=== PATIENT | female | born 1955 | race Caucasian/White ===

== ENCOUNTER → 2016-10-28 | Outpatient (REF) | payer MEDICAID, OTHER ==
[2016-10-28 13:01] LABS: BASO # 0.1 K/mm3 (0.0-0.2); BASO % 1.3 % (0.0-1.0); EOS # 0.2 K/mm3 (0.0-0.50); EOS % 3.1 % (0.0-3.0); LARGE UNSTAINED CELL # 0.1 K/mm3 (0.0-0.4); LARGE UNSTAINED CELL % 1.5 % (0.0-4.0); LYMPH # 1.9 K/mm3 (1.5-4.5); LYMPH % 28.3 % (24.0-44.0); MEAN CORPUSCULAR HGB CONC 33.5 g/dl (32.0-36.5); MEAN CORPUSCULAR VOLUME 89.7 fl (80.0-96.0); MONO # 0.4 K/mm3 (0.0-0.8); MONO % 5.9 % (0.0-5.0); NEUTROPHILS # 3.7 K/mm3 (1.8-7.7); NEUTROPHILS % 59.9 % (36.0-66.0); PLATELET COUNT, AUTOMATED 283 k/mm3 (150-450); RED CELL DISTRIBUTION WIDTH 12.6 % (11.5-14.5); WHITE BLOOD COUNT 6.2 K/mm3 (4.0-10.0)
[2016-10-28 13:15] LABS: ALBUMIN 3.3 GM/DL (3.2-5.2); ALBUMIN/GLOBULIN RATIO 1.03 (1.00-1.93); ALKALINE PHOSPHATASE 78 U/L (45-117); ALT/SGPT 21 U/L (12-78); ANION GAP 9 MEQ/L (8-16); AST/SGOT 14 U/L (15-37); BILIRUBIN,TOTAL 0.4 MG/DL (0.2-1.0); BLOOD UREA NITROGEN 12 MG/DL (7-18); CALCIUM LEVEL 8.9 MG/DL (8.8-10.2); CARBON DIOXIDE LEVEL 28 MEQ/L (21-32); CHLORIDE LEVEL 105 MEQ/L (98-107); CREATININE FOR GFR 0.67 MG/DL (0.55-1.02); GLOMERULAR FILTRATION RATE > 60.0 (>45); GLUCOSE, FASTING 108 MG/DL (80-110); POTASSIUM SERUM 4.3 MEQ/L (3.5-5.1); SODIUM LEVEL 142 MEQ/L (136-145); TOTAL PROTEIN 6.5 GM/DL (6.4-8.2)
[2016-10-28 13:28] LABS: ERYTHROCYTE SEDIMENTATION RATE 15 mm/hr (0-30)
[2016-10-31 00:09] LABS: Lyme Disease IgG/IgM Antibodie <0.91 ISR (0.00-0.90); Lyme Disease IgM Ab Quantitati <0.80 index (0.00-0.79)
[2016-10-31 09:54] LABS: ALBUMIN 3.67 GM/DL (3.29-5.55); ALBUMIN % 56.5 % (55.8-66.1); GAMMA GLOBULIN % 12.7 % (11.1-18.8)
== END ==
LOC: M LABDRAW1 11:37
PROVIDERS: ATTEND Internal Medicine Rheumatology
DX: M35.9 Systemic involvement of connective tissue, unspecified (principal); Z79.899 Other long term (current) drug therapy; D47.2 Monoclonal gammopathy; R53.83 Other fatigue

== ENCOUNTER → 2018-03-14 | Outpatient (REF) | payer OTHER ==
[2018-03-14 22:11] LABS: CHLAMYDIA DNA AMPLIFICATION NEGATIVE (NEGATIVE); GC DNA AMPLIFICATION NEGATIVE (NEGATIVE)
== END ==
LOC: M SFHCLERA 18:49
PROVIDERS: ATTEND Nurse Practitioner Family
DX: R30.0 Dysuria (principal)

== ENCOUNTER → 2018-06-07 | Outpatient (REF) | payer OTHER ==
[2018-06-07 19:07] LABS: APPEARANCE, URINE CLEAR (CLEAR); BACTERIA, URINE AUTO 1+ (NEGATIVE); BILIRUBIN, URINE AUTO NEGATIVE (NEGATIVE); BLOOD, URINE BLOOD NEGATIVE (NEGATIVE); CALCIUM OXALATE CRYSTALS SMALL; COLOR, URINE YELLOW (YELLOW); GLUCOSE, URINE (UA) AUTO NEGATIVE (NEGATIVE); KETONE, URINE AUTO NEGATIVE (NEGATIVE); LEUKOCYTE ESTERASE, URINE AUTO NEGATIVE (NEGATIVE); NITRITE, URINE AUTO NEGATIVE (NEGATIVE); PROTEIN, URINE AUTO NEGATIVE (NEGATIVE); RBC, URINE AUTO 0 /HPF (0-3); SPECIFIC GRAVITY URINE AUTO 1.016 (1.002-1.035); SQUAMOUS EPITHELIAL CELL UR AU 1 /HPF (0-6); UROBILINOGEN, URINE AUTO 0.2 mg/dL (0.0-2.0); WBC, URINE AUTO 1 /HPF (0-3)
== END ==
LOC: M SMT 17:32
PROVIDERS: ATTEND Nurse Practitioner Family
DX: R30.0 Dysuria (principal)

== ENCOUNTER → 2018-06-13 | Outpatient (REF) | payer OTHER ==
[2018-06-13 18:04] LABS: APPEARANCE, URINE CLEAR (CLEAR); BACTERIA, URINE AUTO 1+ (NEGATIVE); BILIRUBIN, URINE AUTO NEGATIVE (NEGATIVE); BLOOD, URINE BLOOD NEGATIVE (NEGATIVE); COLOR, URINE YELLOW (YELLOW); GLUCOSE, URINE (UA) AUTO NEGATIVE (NEGATIVE); KETONE, URINE AUTO NEGATIVE (NEGATIVE); LEUKOCYTE ESTERASE, URINE AUTO 1+ (NEGATIVE); NITRITE, URINE AUTO NEGATIVE (NEGATIVE); PROTEIN, URINE AUTO NEGATIVE (NEGATIVE); RBC, URINE AUTO 1 /HPF (0-3); SPECIFIC GRAVITY URINE AUTO 1.004 (1.002-1.035); SQUAMOUS EPITHELIAL CELL UR AU 0 /HPF (0-6); UROBILINOGEN, URINE AUTO 0.2 mg/dL (0.0-2.0); WBC, URINE AUTO 17 /HPF (0-3)
== END ==
LOC: M SMT 16:59
PROVIDERS: ATTEND Nurse Practitioner Family
DX: R30.0 Dysuria (principal)

== ENCOUNTER → 2019-07-22 | Outpatient (REF) | payer OTHER, MEDICARE ==
[2019-07-22 18:11] LABS: APPEARANCE, URINE CLOUDY (CLEAR); BACTERIA, URINE AUTO NEGATIVE (NEGATIVE); BILIRUBIN, URINE AUTO NEGATIVE (NEGATIVE); BLOOD, URINE BLOOD NEGATIVE (NEGATIVE); COLOR, URINE YELLOW (YELLOW); GLUCOSE, URINE (UA) AUTO NEGATIVE (NEGATIVE); KETONE, URINE AUTO NEGATIVE (NEGATIVE); LEUKOCYTE ESTERASE, URINE AUTO 3+ (NEGATIVE); MUCUS, URINE SMALL (NEGATIVE); NITRITE, URINE AUTO NEGATIVE (NEGATIVE); PROTEIN, URINE AUTO NEGATIVE (NEGATIVE); RBC, URINE AUTO 3 /HPF (0-3); SPECIFIC GRAVITY URINE AUTO 1.008 (1.002-1.035); SQUAMOUS EPITHELIAL CELL UR AU 1 /HPF (0-6); UROBILINOGEN, URINE AUTO 0.2 mg/dL (0.0-2.0); WBC, URINE AUTO 81 /HPF (0-3)
== END ==
LOC: M SMT 17:23
PROVIDERS: ATTEND Nurse Practitioner Family
DX: R30.0 Dysuria (principal)

== ENCOUNTER 2019-08-17 17:48 | Emergency (ER) | payer MEDICARE, OTHER ==
[~2019-08-17] VITALS: Ht 152.4 cm; Wt 98.2 kg
[2019-08-17] MEDS ORDERED: SERT-138 PO (18:01)
[2019-08-17] MEDS ORDERED: LAMO100T3 PO (18:01)
[2019-08-17] MEDS ORDERED: MEDR4TAB PO (18:01)
[2019-08-17] MEDS ORDERED: MYRB50TA PO (18:01)
[2019-08-17] MEDS ORDERED: BUSP15TA47 PO (18:01)
[2019-08-17] MEDS ORDERED: AMBI10TA PO (18:01)
[2019-08-17] MEDS ORDERED: BACL10TA2 PO (18:01)
[2019-08-17] MEDS ORDERED: METF10004 PO (18:01)
[2019-08-17] MEDS ORDERED: VITA-158 PO (18:01)
[2019-08-17] MEDS ORDERED: PREG100CA PO (18:01)
[2019-08-17] MEDS ORDERED: PREM0.45 PO (18:01)
[2019-08-17] MEDS ORDERED: LISI2.5T2 PO (18:01)
[2019-08-17] MEDS ORDERED: MORPHINE 4 MG/ML 1ML VIAL/SYRINGE (J2270) IV ONE (18:45)
[2019-08-17 19:06] LABS: BASO # 0.1 10^3/uL (0.0-0.2); BASO % 0.7 % (0.0-1.0); EOS # 0.2 10^3/uL (0.0-0.5); EOS % 1.5 % (0.0-3.0); HEMOGLOBIN 13.2 g/dl (12.0-15.5); LYMPH # 3.3 10^3/uL (1.5-5.0); LYMPH % 22.6 % (24.0-44.0); MEAN CORPUSCULAR HEMOGLOBIN 28.4 pg (27.0-33.0); MEAN CORPUSCULAR HGB CONC 32.2 g/dl (32.0-36.5); MEAN CORPUSCULAR VOLUME 88.2 fl (80.0-96.0); MONO # 1.4 10^3/uL (0.0-0.8); MONO % 9.8 % (0.0-5.0); NEUTROPHILS # 9.5 10^3/uL (1.5-8.5); NEUTROPHILS % 64.9 % (36.0-66.0); PLATELET COUNT, AUTOMATED 332 10^3/uL (150-450); RED BLOOD COUNT 4.65 10^6/uL (4.00-5.40); WHITE BLOOD COUNT 14.6 10^3/uL (4.0-10.0)
[2019-08-17 19:24] LABS: ERYTHROCYTE SEDIMENTATION RATE 28 mm/hr (0-30)
[2019-08-17] MEDS ORDERED: NS 1,000 ML IV ONE (19:45)
[2019-08-17 19:49] LABS: BLOOD UREA NITROGEN 12 MG/DL (7-18); CALCIUM LEVEL 8.6 MG/DL (8.8-10.2); CARBON DIOXIDE LEVEL 31 MEQ/L (21-32); CHLORIDE LEVEL 101 MEQ/L (98-107); CREATININE FOR GFR 0.74 MG/DL (0.55-1.30); GLOMERULAR FILTRATION RATE > 60.0 (>45); GLUCOSE, FASTING 125 MG/DL (70-100); SODIUM LEVEL 140 MEQ/L (136-145)
[2019-08-17] MEDS ORDERED: ISOVUE-370 76% 100ML VIAL As Ordered ONE (19:51)
--- NOTE | 2019-08-17 20:24 | REPVR ---
PROCEDURE INFORMATION: Exam: CT Angiography Pelvis With Contrast Exam date and time: 08/17/2019 7:58 PM Age: 63 years old Clinical indication: Severe right groin pain TECHNIQUE: Imaging protocol: Computed tomographic angiography of the pelvis with intravenous contrast material. 3D rendering: MIP and/or 3D reconstructed images were created by the technologist. Radiation optimization: All CT scans at this facility use at least one of these dose optimization techniques: automated exposure control; mA and/or kV adjustment per patient size (includes targeted exams where dose is matched to clinical indication); or iterative reconstruction. Contrast material: ISOVUE 370; Contrast volume: 100 ml; Contrast route: IV; COMPARISON: No relevant prior studies available. FINDINGS: Aorta: The visualized portion of the distal abdominal aorta is normal in caliber and patent. Inferior mesenteric artery: The inferior mesenteric artery is patent. Right iliac arteries: The right common iliac artery, right external iliac artery, and right internal iliac artery are intact and patent. Right femoral/popliteal arteries: No occlusion or stenosis of the right common femoral artery, imaged proximal portion of the right superficial femoral artery, or imaged proximal portion of the right profunda femoris artery. The right popliteal artery was not imaged. Left iliac arteries: The left common iliac artery, left external iliac artery, and left internal iliac artery are intact and patent. Left femoral/popliteal arteries: No occlusion or stenosis of the left common femoral artery, imaged proximal portion of the left superficial femoral artery, or imaged proximal portion of the left profunda femoris artery. The left popliteal artery was not imaged. Stomach and bowel: There is an anastomotic suture line involving small bowel in the left side of the abdomen. The imaged loops of small and large bowel are otherwise unremarkable. No bowel obstruction is noted. There is a moderate amount of formed stool in the cecum and ascending colon. The bowel in the abdomen was not fully imaged. The stomach was not imaged. Appendix: Normal. There is no evidence for appendicitis. Intraperitoneal space: No free air or fluid collection in the pelvis. Lymph nodes: No enlarged lymph nodes. Reproductive: There has been a hysterectomy. The ovaries are unremarkable. Bladder: The distended urinary bladder is normal in appearance. No stones or masses are seen in the bladder. Bones/joints: The imaged bony structures are intact. There is no suspicious osteolytic or osteoblastic lesion. 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 There are degenerative changes involving the lower lumbar spine. There is a grade 1 anterolisthesis of L4 on L5 secondary to severe osteoarthritis of the L4-L5 facet joints. No pars defect is noted. There is mild osteoarthritis of both hip joints. Incidental note is made of a small bone island in the right femoral head. Soft tissues: There is a small fat containing midline ventral hernia located approximately 7 cm above the umbilicus. No inguinal hernia. No soft tissue fluid collection. IMPRESSION: 1. No acute findings in the pelvis. No inguinal hernia. 2. Small fat containing midline ventral hernia located approximately 7 cm above the umbilicus. 3. Patent iliac arteries and proximal femoral arteries. Electronically signed by: Bolivar Pat On 08/17/2019 20:23:53 PM
[2019-08-17] MEDS ORDERED: ULTR50TA8 PO (21:13)
[2019-08-17] MEDS ORDERED: traMADol 50 MG TAB (BULK 4 TAB ED) PO ONE (21:15)
[2019-08-17 21:25] VITALS: BP 142/78
== END 2019-08-17 21:31 | disposition home or self-care (01) ==
LOC: M ED 17:48
DX: M25.551 Pain in right hip (principal); R10.30 Lower abdominal pain, unspecified; K43.9 Ventral hernia without obstruction or gangrene; Z98.84 Bariatric surgery status; Z96.653 Presence of artificial knee joint, bilateral; Z86.69 Personal history of other diseases of the nervous system and sense organs; D86.9 Sarcoidosis, unspecified; E11.9 Type 2 diabetes mellitus without complications; M51.26 Other intervertebral disc displacement, lumbar region; F41.9 Anxiety disorder, unspecified; F32.9 Major depressive disorder, single episode, unspecified; Z79.890 Hormone replacement therapy; Z79.84 Long term (current) use of oral hypoglycemic drugs; Z79.899 Other long term (current) drug therapy; Z88.0 Allergy status to penicillin
CPT/HCPCS: 72191; 80048; 85025; 85652; 96361; 96374; 99284; J2270; Q9967

== ENCOUNTER → 2020-04-21 | Outpatient (REF) | payer MEDICARE, MEDICAID ==
[~2020-04-21] MED LIST: AMBI10TA PO; BACL10TA2 PO; BUSP15TA47 PO; LAMO100T3 PO; LISI2.5T2 PO; MEDR4TAB PO; METF10004 PO; MYRB50TA PO; PREG100CA PO; PREM0.45 PO; SERT-138 PO; ULTR50TA8 PO; VITA-158 PO
[2020-04-21 14:27] LABS: APPEARANCE, URINE HAZY (CLEAR); BACTERIA, URINE AUTO NEGATIVE (NEGATIVE); BILIRUBIN, URINE AUTO NEGATIVE (NEGATIVE); BLOOD, URINE BLOOD NEGATIVE (NEGATIVE); COLOR, URINE AMBER (YELLOW); GLUCOSE, URINE (UA) AUTO NEGATIVE (NEGATIVE); KETONE, URINE AUTO TRACE mg/dL (NEGATIVE); LEUKOCYTE ESTERASE, URINE AUTO NEGATIVE (NEGATIVE); MUCUS, URINE SMALL (NEGATIVE); NITRITE, URINE AUTO NEGATIVE (NEGATIVE); PROTEIN, URINE AUTO NEGATIVE (NEGATIVE); RBC, URINE AUTO 0 /HPF (0-3); SPECIFIC GRAVITY URINE AUTO 1.026 (1.002-1.035); SQUAMOUS EPITHELIAL CELL UR AU 0 /HPF (0-6); WBC, URINE AUTO 1 /HPF (0-3)
== END ==
LOC: M SMT 13:41
PROVIDERS: ATTEND Nurse Practitioner Women's Health
DX: N39.41 Urge incontinence (principal)
CPT/HCPCS: 51798; 81001; 87086; G0463

== ENCOUNTER → 2020-09-03 | Outpatient (CLI) | payer MEDICARE, MEDICAID ==
--- NOTE | 2020-09-03 11:14 | REP ---
INDICATION: LOW BACK PAIN. COMPARISON: 10/27/2016 TECHNIQUE: Five views FINDINGS: Vertebral body height and alignment is unchanged. There is posterior disc space narrowing at every level status quo. A minimal grade 1 L4 upon L5 spondylolisthesis may have developed since last exam. Degenerative facet joint changes seen bilaterally at every level particularly L4-5 and L5-S1. There is anterior lipping at every level which is increased slightly. Tiny marginal osteophytes are seen bilaterally at multiple levels. The pedicles are intact bilaterally. IMPRESSION: Chronic changes as described above. <Electronically signed by Leon Ng > 09/03/20 1111
== END ==
LOC: M WUC 09:21
PROVIDERS: ATTEND Physician Assistant
DX: M54.5 Low back pain (principal)

== ENCOUNTER → 2020-09-10 | Outpatient (CLI) | payer MEDICARE, MEDICAID ==
--- NOTE | 2020-09-10 21:27 | REPVR ---
PROCEDURE INFORMATION: Exam: MR Lumbar Spine Without Contrast Exam date and time: 09/10/2020 2:02 PM Age: 65 years old Clinical indication: Low back pain; Additional info: Lumbar radiculopathy TECHNIQUE: Imaging protocol: Multiplanar magnetic resonance images of the lumbar spine without intravenous contrast. COMPARISON: CR SPINE LS COMPLETE 09/03/2020 9:35 AM FINDINGS: Vertebral body heights are maintained. No abnormal marrow signal. No cord compression. No abnormal cord signal. 0.4 cm grade 1 anterolisthesis of L4 on L5. Conus medullaris terminates at the L1 level. Paravertebral soft tissues are unremarkable. L1-L2: No significant canal or foraminal narrowing. L2-L3: Right paracentral disc protrusion superimposed over broad-based disc bulge causes mild canal narrowing and slight effacement of the right lateral recess. Mild bilateral foraminal narrowing. L3-L4: Broad-based disc bulge and facet hypertrophy cause mild canal narrowing and mild bilateral foraminal narrowing. L4-L5: Left paracentral disc protrusion superimposed over broad-based disc bulge causes mild canal narrowing and effacement of the bilateral lateral recesses. Impingement upon the bilateral traversing L5 nerve roots. Along with facet hypertrophy there is mild to moderate right and moderate left foraminal narrowing. L5-S1: No significant canal or foraminal narrowing. IMPRESSION: Multilevel spondylotic changes of the lumbar spine, most pronounced at L4-L5, as detailed above. Electronically signed by: Anand Louis On 09/10/2020 21:26:50 PM
== END ==
LOC: M PLAIMG 12:29
PROVIDERS: ATTEND Nurse Practitioner Family
DX: M54.16 Radiculopathy, lumbar region (principal)

== ENCOUNTER → 2021-12-03 | Outpatient (CLI) | payer MEDICARE, MEDICAID ==
[~2021-12-03] MED LIST changes: -LISI2.5T2 PO; +LISI2.5T9 PO
== END ==
LOC: M PLAIMG 06:50
PROVIDERS: ATTEND Nurse Practitioner Family
DX: M54.14 Radiculopathy, thoracic region (principal)

== ENCOUNTER → 2022-02-17 | Outpatient (CLI) | payer MEDICARE, MEDICAID | LOC: M RAD 07:01 | PROVIDERS: ATTEND Pain Medicine Interventional Pain Medicine | DX: M51.14 Intervertebral disc disorders with radiculopathy, thoracic region (principal); M47.814 Spondylosis without myelopathy or radiculopathy, thoracic region ==

== ENCOUNTER → 2022-04-27 | Outpatient (REF) | payer MEDICARE, MEDICAID ==
[2022-04-27 17:43] LABS: APPEARANCE, URINE CLEAR (CLEAR); BILIRUBIN, URINE AUTO NEGATIVE (NEGATIVE); BLOOD, URINE BLOOD NEGATIVE (NEGATIVE); COLOR, URINE YELLOW (YELLOW); GLUCOSE, URINE (UA) AUTO NEGATIVE (NEGATIVE); KETONE, URINE AUTO NEGATIVE (NEGATIVE); LEUKOCYTE ESTERASE, URINE AUTO NEGATIVE (NEGATIVE); NITRITE, URINE AUTO NEGATIVE (NEGATIVE); PROTEIN, URINE AUTO NEGATIVE (NEGATIVE); SPECIFIC GRAVITY URINE AUTO 1.003 (1.002-1.035); UROBILINOGEN, URINE AUTO 0.2 mg/dL (0.0-2.0)
[2022-04-27 17:46] LABS: BACTERIA, URINE AUTO NEGATIVE (NEGATIVE); RBC, URINE AUTO 0 /HPF (0-3); SQUAMOUS EPITHELIAL CELL UR AU 0 /HPF (0-6); WBC, URINE AUTO 1 /HPF (0-3)
== END ==
LOC: M SMT 16:55
PROVIDERS: ATTEND Urology
DX: R32 Unspecified urinary incontinence (principal)

== ENCOUNTER → 2022-05-20 | Outpatient (CLI) | payer MEDICARE, MEDICAID ==
[2022-05-23 18:07] LABS: MUMPS VIRUS IgG ANTIBODY <9.0 AU/mL (Immune >10.9); RUBEOLA IgG ANTIBODY >300.0 AU/mL (Immune >16.4)
== END ==
LOC: M WUC 11:40
DX: Z02.1 Encounter for pre-employment examination (principal)

== ENCOUNTER → 2022-06-08 | Outpatient (CLI) | payer MEDICARE, MEDICAID ==
[~2022-06-08] MED LIST changes: +B-122500 PO; +CALCCAP4 PO; +CALCTAB53 PO; +D31000CA4 PO; +IRON27TA2 PO; +LORA-674 PO; +MODA100T13 PO; +ROSU5TAB5 PO; +SERT50TA29 PO; +VITA500045 PO; +VITA500T11 PO; +VITATAB73 PO; +VITMTA PO
== END ==
LOC: M LABSMTC 09:18
PROVIDERS: ATTEND Anesthesiology
DX: Z01.818 Encounter for other preprocedural examination (principal); Z11.52 Encounter for screening for COVID-19

== ENCOUNTER 2022-06-13 10:45 | Day surgery (SDC) | payer MEDICARE, MEDICAID ==
[~2022-06-13] VITALS: Ht 149.9 cm; Wt 94.7 kg
[~2022-06-13 10:45] MED LIST changes: +ceFAZolin SOD 2 GM in IV 1 EA IV ONE
[2022-06-13] MEDS ORDERED: LIDOCAINE 1% SDV 30ML VIAL As Ordered ONE ×2 (10:55→12:26)
[2022-06-13] MEDS ORDERED: BUPIVACAINE/EPIN 0.25% 30ML VIAL As Ordered ONE (10:55)
[2022-06-13] MEDS ORDERED: INSULIN LISPRO (NovoLOG) PER UNIT SC PRN (11:05)
[2022-06-13] MEDS ORDERED: ONDANSETRON 4MG 2ML VIAL As Ordered ONE (12:02)
[2022-06-13] MEDS ORDERED: propofoL 200 MG/20 ML VIAL As Ordered ONE (12:02)
[2022-06-13] MEDS ORDERED: fentaNYL 100 MCG/2 ML INJECTION As Ordered ONE (12:02)
[2022-06-13] MEDS ORDERED: ACETAMINOPHEN 1000MG 100ML IV BAG As Ordered ONE (12:02)
[2022-06-13] MEDS ORDERED: LIDOCAINE 2% 100MG/5ML SDV (FOR ANES.) As Ordered ONE (12:02)
[2022-06-13] MEDS ORDERED: METOCLOPRAMIDE INJ 10MG/2ML VIAL As Ordered ONE (12:02)
[2022-06-13] MEDS ORDERED: MIDAZOLAM INJ 2MG/2ML VIAL As Ordered ONE (12:02)
[2022-06-13] MEDS ORDERED: DESFLURANE 240 ML INHALANT As Ordered ONE (12:34)
[2022-06-13] MEDS ORDERED: CEPH500C PO (12:46)
[2022-06-13 13:10] VITALS: BP 116/58
== END 2022-06-13 13:20 | disposition home or self-care (01) ==
LOC: M SDC 10:45
PROVIDERS: ATTEND Urology
DX: N32.81 Overactive bladder (principal); E78.5 Hyperlipidemia, unspecified; M79.7 Fibromyalgia; F41.9 Anxiety disorder, unspecified; F32.A Depression, unspecified; Z86.73 Personal history of transient ischemic attack (TIA), and cerebral infarction without residual deficits; Z79.899 Other long term (current) drug therapy; Z87.891 Personal history of nicotine dependence
CPT/HCPCS: 64561; 76000; C1778; C1787; J0131; J1100; J2250; J2405; J2765; J3010

== ENCOUNTER 2022-06-27 06:31 | Day surgery (SDC) | payer MEDICARE, MEDICAID ==
[~2022-06-27] VITALS: Ht 149.9 cm; Wt 95.7 kg
[~2022-06-27 06:31] MED LIST changes: +CEPH500C PO
[2022-06-27] MEDS ORDERED: KETOROLAC 60MG 2ML VIAL As Ordered ONE ×2 (07:10→07:46)
[2022-06-27] MEDS ORDERED: propofoL 200 MG/20 ML VIAL As Ordered ONE ×2 (07:10→07:43)
[2022-06-27] MEDS ORDERED: LIDOCAINE 2% 100MG/5ML SDV (FOR ANES.) As Ordered ONE ×2 (07:10→07:43)
[2022-06-27] MEDS ORDERED: ONDANSETRON 4MG 2ML VIAL As Ordered ONE ×2 (07:10→07:43)
[2022-06-27] MEDS ORDERED: MIDAZOLAM INJ 2MG/2ML VIAL As Ordered ONE (07:51)
[2022-06-27] MEDS ORDERED: fentaNYL 100 MCG/2 ML INJECTION As Ordered ONE (07:51)
[2022-06-27] MEDS ORDERED: LR 1,000 ML IV SCH (08:05)
[2022-06-27] MEDS ORDERED: ceFAZolin 1GM VIAL As Ordered ONE (08:40)
[2022-06-27] MEDS ORDERED: LIDOCAINE 1% SDV 30ML VIAL As Ordered ONE (08:40)
[2022-06-27] MEDS ORDERED: ACETAMINOPHEN 1000MG 100ML IV BAG As Ordered ONE (08:58)
[2022-06-27] MEDS ORDERED: HYDR-3713 PO (09:39)
[2022-06-27] MEDS ORDERED: CEPH500C PO (09:39)
[2022-06-27 09:42] VITALS: BP 126/70
== END 2022-06-27 10:12 | disposition home or self-care (01) ==
LOC: M SDC 06:31
PROVIDERS: ATTEND Urology
DX: N32.81 Overactive bladder (principal); R32 Unspecified urinary incontinence; E78.00 Pure hypercholesterolemia, unspecified; E11.9 Type 2 diabetes mellitus without complications; I10 Essential (primary) hypertension; M51.26 Other intervertebral disc displacement, lumbar region; D86.9 Sarcoidosis, unspecified; M19.90 Unspecified osteoarthritis, unspecified site; M79.7 Fibromyalgia; F41.9 Anxiety disorder, unspecified; F32.A Depression, unspecified; Z87.891 Personal history of nicotine dependence; Z86.73 Personal history of transient ischemic attack (TIA), and cerebral infarction without residual deficits; Z79.899 Other long term (current) drug therapy; Z79.84 Long term (current) use of oral hypoglycemic drugs
CPT/HCPCS: 64581; 64590; 76000; C1787; J0131; J0690; J1100; J1885; J2250; J2405; J3010; L8689

== ENCOUNTER → 2023-01-17 | Outpatient (CLI) | payer MEDICAID, MEDICARE ==
[~2023-01-17] MED LIST changes: +ACET-897 PO; +BUPR-71 PO; +HYDR-3713 PO; +LAMO200T3; +LORA-1041 PO; -LORA-674 PO; +METF500T13; -ceFAZolin SOD 2 GM in IV 1 EA IV ONE
== END ==
LOC: M PLAIMG 10:05
PROVIDERS: ATTEND Pain Medicine Interventional Pain Medicine
DX: M54.16 Radiculopathy, lumbar region (principal)

== ENCOUNTER → 2024-11-05 | Outpatient (REF) | payer MEDICARE, MEDICAID ==
[~2024-11-05] MED LIST changes: -AMBI10TA PO; +ERGO125013 PO; +PREG-35 PO; -PREG100CA PO; +ROSU5TAB49 PO; -ROSU5TAB5 PO; -VITA500045 PO; +ZOLP-533 PO
[2024-11-05 18:18] LABS: APPEARANCE, URINE HAZY (CLEAR); BACTERIA, URINE AUTO 1+ (NEGATIVE); BILIRUBIN, URINE AUTO NEGATIVE (NEGATIVE); BLOOD, URINE BLOOD NEGATIVE (NEGATIVE); GLUCOSE, URINE (UA) AUTO NEGATIVE (NEGATIVE); KETONE, URINE AUTO NEGATIVE (NEGATIVE); LEUKOCYTE ESTERASE, URINE AUTO 1+ (NEGATIVE); NITRITE, URINE AUTO NEGATIVE (NEGATIVE); PROTEIN, URINE AUTO NEGATIVE (NEGATIVE); RBC, URINE AUTO 2 /HPF (0-3); SPECIFIC GRAVITY URINE AUTO 1.006 (1.002-1.035); SQUAMOUS EPITHELIAL CELL UR AU 0 /HPF (0-6); TRANSITIONAL EPITHELIAL AUTO <1 /HPF; UROBILINOGEN, URINE AUTO 0.2 mg/dL (0.0-2.0); WBC, URINE AUTO 52 /HPF (0-3)
== END ==
LOC: M SMT 16:49
PROVIDERS: ATTEND Nurse Practitioner Family
DX: R39.9 Unspecified symptoms and signs involving the genitourinary system (principal)

== ENCOUNTER 2025-02-11 14:49 | Emergency (ER) | payer MEDICAID, MEDICARE ==
[~2025-02-11] VITALS: Ht 149.9 cm; Wt 101.4 kg
[2025-02-11] MEDS: BENZONATATE 100 MG CAPSULE PO ONE (16:52)
[2025-02-11] MEDS: IBUPROFEN 600 MG TAB PO ONE (17:20)
[2025-02-11] MEDS: OSELTAMIVIR PHOSPHATE 75 MG CAP PO ONE (17:20)
[2025-02-11] MEDS ORDERED: BENZ200C70 PO (18:54)
[2025-02-11] MEDS ORDERED: OSEL75CA PO (18:54)
[2025-02-11 19:05] VITALS: BP 108/58; TEMP 98.2; O2SAT 98
== END 2025-02-11 19:06 | disposition home or self-care (01) ==
LOC: M ED 14:49
DX: J09.X2 Influenza due to identified novel influenza A virus with other respiratory manifestations (principal); E11.9 Type 2 diabetes mellitus without complications; Z86.73 Personal history of transient ischemic attack (TIA), and cerebral infarction without residual deficits; Z79.1 Long term (current) use of non-steroidal anti-inflammatories (NSAID); Z79.84 Long term (current) use of oral hypoglycemic drugs; Z79.899 Other long term (current) drug therapy; Z79.810 Long term (current) use of selective estrogen receptor modulators (SERMs)